=== PATIENT | female | born 1980 | race Caucasian/White ===

== ENCOUNTER 2017-01-21 15:22 | Inpatient (IN) | payer OTHER ==
[~2017-01-21] VITALS: Ht 154.9 cm; Wt 77.0 kg
[~2017-01-21 15:22] MED LIST: ASPIRIN81 M2 PO; AUGMENTIN875 MG PO; B COMPLETE1 EACH PO; ESCITALOPRAM OX20 MG PO; GINSENG100 M2 PO; LEVAQUIN750 MG PO; LO-DOSE ASPIRIN81 M2 PO; LORAZEPAM0.5 MG PO; MAGNESIUM100 MG PO; MEDROL DOSEPAK4 MG PO; MICRONOR0.35 MG PO; PREDNISONE20 MG PO; PREDNISONE50 MG PO; PROAIR HFA8.5 GM IH; PROBIOTIC1 EAC1 PO; VENTOLIN HFA18 GM IH
[2017-01-21 16:58] LABS: HEMATOCRIT 41.5 % (36.0-46.0); MCH 30.8 PG (29.0-34.0); MCHC 34.2 G/DL (30.0-36.0); MEAN PLAT.VOLUME 9.4 uM^3 (9.5-12.4); PLATELET COUNT 323 K/uL (156-360); RBC DIS.WIDTH-CV 12.2 % (11.8-14.6); RBC DIS.WIDTH-SD 40.1 % (39-53); RED BLOOD COUNT 4.61 M/uL (3.80-5.20); WHITE BLOOD COUNT 16.5 K/uL (4.1-10.2)
[2017-01-21 17:09] LABS: CHLORIDE 105 mEq/L (99-109); SODIUM 139 mEq/L (136-147)
[2017-01-21 17:11] LABS: GLUCOSE 108 mg/dL (70-99)
[2017-01-21 17:13] LABS: ANION GAP 10 MEQ/L (2-14)
[2017-01-21 17:15] LABS: GFR ESTIMATE (CALCULATED) > 59 mL/min/
[2017-01-21 17:16] LABS: UREA NITROGEN (BUN) 8 mg/dL (9-23)
[2017-01-21] MEDS ORDERED: ORTHO TRI-CY1 TABLE1 PO (20:02)
[2017-01-21] MEDS ORDERED: ADVIL200 MG PO (20:02)
[2017-01-21] MEDS ORDERED: CLARITIN,ALAVAR10 MG PO (20:02)
[2017-01-21 22:42] VITALS: BP 129/64
[2017-01-21 23:23] VITALS: BP 128/71
[2017-01-22 06:52] LABS: BASOPHIL COUNT 0.1 K/uL (0-0.1); EOSINOPHIL COUNT 1.3 K/uL (0-0.3); IMMATURE GRANULOCYTE (%) 0.3 % (0.0-0.7); INSTRUMENT ABS NEUTROPHIL CT 7.2 K/uL; LYMPHOCYTE COUNT 3.6 K/uL (1.0-2.8); MCH 30.9 PG (29.0-34.0); MCHC 33.5 G/DL (30.0-36.0); MCV 92.3 FL (83-99); MEAN PLAT.VOLUME 9.7 uM^3 (9.5-12.4); MONOCYTE (%) 6.7 % (3-12); MONOCYTE COUNT 0.9 K/uL (0-0.8); NEUTROPHIL (%) 54.5 % (45-76); NEUTROPHIL COUNT 7.2 K/uL (1.8-6.4); PLATELET COUNT 295 K/uL (156-360); RBC DIS.WIDTH-CV 12.4 % (11.8-14.6); RBC DIS.WIDTH-SD 42.3 % (39-53); RED BLOOD COUNT 4.01 M/uL (3.80-5.20); WHITE BLOOD COUNT 13.2 K/uL (4.1-10.2)
[2017-01-22 07:16] LABS: ANION GAP 7 MEQ/L (2-14); CHLORIDE 107 MEQ/L (99-109); GFR ESTIMATE (CALCULATED) > 59 mL/min/; GLUCOSE 96 mg/dL (70-99); POTASSIUM 3.8 MEQ/L (3.7-5.4); SAMPLE HEMOLYSIS CHECK 0; SAMPLE ICTERIC CHECK 0; SAMPLE LIPEMIA CHECK 0; SODIUM 140 MEQ/L (136-147); UREA NITROGEN (BUN) 8 mg/dL (9-23)
[2017-01-22 08:10] VITALS: BP 106/63
[2017-01-22 11:49] LABS: ADD MIUA? NO; BILIRUBIN NEGATIVE; BLOOD NEGATIVE; COLOR STRAW ((YELLOW)); GLUCOSE (STRIP) NEGATIVE; KETONES NEGATIVE; LEUKOCYTES NEGATIVE; NITRITE NEGATIVE; PROTEIN (STRIP) NEGATIVE; SPECIFIC GRAVITY 1.005 (1.000-1.030); UCUL ADDED? NO; UROBILINOGEN 0.2 MG/DL (0.2-1.0)
[2017-01-22 12:27] LABS: AMPHETAMINES QUANT VALUE 0 NG/ML; BARBITUATES QUANT VALUE 0 NG/ML; BENZODIAZEPINES QUANT VALUE 0 NG/ML; BENZODIAZEPINES, URINE SCREEN Negative (200 ng/mL); MARIJUANA QUANT VALUE 0 NG/ML; PHENCYCLIDINE QUANT VALUE 0 NG/ML
[2017-01-22 15:55] LABS: INFLUENZA A VIRAL ANTIGEN NEGATIVE; INFLUENZA B VIRAL ANTIGEN NEGATIVE
[2017-01-22 16:00] VITALS: BP 119/58
[2017-01-22 22:32] VITALS: BP 121/58
[2017-01-23 05:41] LABS: HEMATOCRIT 40.1 % (36.0-46.0); MCH 30.4 PG (29.0-34.0); MCHC 33.7 G/DL (30.0-36.0); MCV 90.3 FL (83-99); MEAN PLAT.VOLUME 9.5 uM^3 (9.5-12.4); PLATELET COUNT 320 K/uL (156-360); RBC DIS.WIDTH-CV 12.1 % (11.8-14.6); RBC DIS.WIDTH-SD 40.1 % (39-53); RED BLOOD COUNT 4.44 M/uL (3.80-5.20); WHITE BLOOD COUNT 15.1 K/uL (4.1-10.2)
[2017-01-23 06:41] LABS: ANION GAP 10 MEQ/L (2-14); CHLORIDE 104 MEQ/L (99-109); GFR ESTIMATE (CALCULATED) > 59 mL/min/; GLUCOSE 93 mg/dL (70-99); POTASSIUM 4.4 MEQ/L (3.7-5.4); SAMPLE HEMOLYSIS CHECK 0; SAMPLE ICTERIC CHECK 0; SAMPLE LIPEMIA CHECK 0; SODIUM 138 MEQ/L (136-147); UREA NITROGEN (BUN) 10 mg/dL (9-23)
[2017-01-23 07:23] VITALS: BP 114/63
[2017-01-23 07:39] LABS: INTERNAL CONTROL VALID? YES
[2017-01-23] MEDS ORDERED: ZITHROMAX250 MG PO (09:35)
[2017-01-23] MEDS ORDERED: VENTOLIN HFA18 GM IH (09:35)
[2017-01-23] MEDS ORDERED: ESCITALOPRAM OX20 MG PO (09:35)
[2017-01-23] MEDS ORDERED: BENZONATATE100 MG PO (09:35)
== END 2017-01-23 15:12 | disposition home or self-care (01) | DRG 193 ==
LOC: EME 15:22 → 5EAST 21:04 → EDOF 21:04 → 5EAST 22:28
PROVIDERS: Emergency Medicine; Hospitalist; Nurse Practitioner Family; Physician Assistant Medical
DX: J18.9 Pneumonia, unspecified organism (principal); A41.9 Sepsis, unspecified organism; R65.20 Severe sepsis without septic shock; F31.62 Bipolar disorder, current episode mixed, moderate; F41.0 Panic disorder [episodic paroxysmal anxiety]; J45.909 Unspecified asthma, uncomplicated; F90.9 Attention-deficit hyperactivity disorder, unspecified type; I95.9 Hypotension, unspecified; F17.220 Nicotine dependence, chewing tobacco, uncomplicated; J20.9 Acute bronchitis, unspecified; R00.0 Tachycardia, unspecified; F60.9 Personality disorder, unspecified; D72.1 Eosinophilia; E66.9 Obesity, unspecified; F17.210 Nicotine dependence, cigarettes, uncomplicated; J98.4 Other disorders of lung; Z87.01 Personal history of pneumonia (recurrent); Z68.32 Body mass index [BMI] 32.0-32.9, adult; Z09 Encounter for follow-up examination after completed treatment for conditions other than malignant neoplasm; Z81.8 Family history of other mental and behavioral disorders
CPT/HCPCS: 71010; 71020; 71275; 80048; 80306 90; 81003; 83605; 84702; 85025; 85027; 87040; 87070; 87205; 87449; 87502; 93005; 94640; 94640 76; 99202; 99281; 99285; J0456; J0696; J1650; J7030; J7050; J7120; J7644

== ENCOUNTER 2017-02-02 00:42 | Inpatient (IN) | payer OTHER ==
[~2017-02-02] VITALS: Ht 154.9 cm; Wt 75.7 kg
[~2017-02-02 00:42] MED LIST changes: +ADVIL200 MG PO; +BENZONATATE100 MG PO; +CLARITIN,ALAVAR10 MG PO; +ORTHO TRI-CY1 TABLE1 PO; +ZITHROMAX250 MG PO
[2017-02-02 03:25] LABS: ALKALINE PHOSPHATASE 55 IU/L (3-129); ANION GAP 11 MEQ/L (2-14); CHLORIDE 103 MEQ/L (99-109); GFR ESTIMATE (CALCULATED) > 59 mL/min/; GLUCOSE 142 mg/dL (70-99); LIPASE 12 U/L (1.0-51.0); POTASSIUM 3.6 MEQ/L (3.7-5.4); SAMPLE HEMOLYSIS CHECK 0; SAMPLE ICTERIC CHECK 0; SAMPLE LIPEMIA CHECK 0; SODIUM 139 MEQ/L (136-147); TOTAL BILIRUBIN 0.3 MG/DL (0.0-1.0); UREA NITROGEN (BUN) 6 mg/dL (9-23)
[2017-02-02 03:47] LABS: HEMATOCRIT 41.6 % (36.0-46.0); MCH 30.7 PG (29.0-34.0); MCHC 34.1 G/DL (30.0-36.0); MCV 89.8 FL (83-99); RED BLOOD COUNT 4.63 M/uL (3.80-5.20)
[2017-02-02 03:48] LABS: PLATELET COUNT 348 K/uL (156-360)
[2017-02-02 03:49] LABS: MEAN PLAT.VOLUME 9.3 uM^3 (9.5-12.4); RBC DIS.WIDTH-CV 12.3 % (11.8-14.6)
[2017-02-02 05:19] VITALS: BP 132/64
[2017-02-02 08:00] LABS: TROP-I INTERPRETATION NEGATIVE; TROPONIN-I < 0.01 ng/mL (0.0-0.30)
[2017-02-02 08:45] VITALS: BP 109/57
[2017-02-02 12:20] VITALS: BP 116/57
[2017-02-02 16:50] VITALS: BP 125/62
[2017-02-02 19:22] VITALS: BP 124/58
[2017-02-02 23:26] VITALS: BP 121/55
[2017-02-03 03:07] VITALS: BP 121/58
[2017-02-03 07:17] VITALS: BP 105/67
[2017-02-03 08:44] LABS: EOSINOPHIL (%) 0 % (0-5); HEMATOCRIT 38.5 % (36.0-46.0); IMMATURE GRANULOCYTE (%) 0.8 % (0.0-0.7); IMMATURE GRANULOCYTE COUNT 0.3 K/uL; INSTRUMENT ABS NEUTROPHIL CT 27.6 K/uL; LYMPHOCYTE COUNT 1.2 K/uL (1.0-2.8); MCH 31.2 PG (29.0-34.0); MCV 91.7 FL (83-99); MEAN PLAT.VOLUME 9.7 uM^3 (9.5-12.4); MONOCYTE (%) 1.3 % (3-12); MONOCYTE COUNT 0.4 K/uL (0-0.8); NEUTROPHIL (%) 93.7 % (45-76); NEUTROPHIL COUNT 27.6 K/uL (1.8-6.4); PLATELET COUNT 306 K/uL (156-360); RBC DIS.WIDTH-CV 12.7 % (11.8-14.6); RBC DIS.WIDTH-SD 42.8 % (39-53); WHITE BLOOD COUNT 29.5 K/uL (4.1-10.2)
[2017-02-03 09:05] LABS: ALKALINE PHOSPHATASE 46 IU/L (3-129); ANION GAP 11 MEQ/L (2-14); CHLORIDE 104 MEQ/L (99-109); GFR ESTIMATE (CALCULATED) > 59 mL/min/; GLUCOSE 158 mg/dL (70-99); POTASSIUM 3.5 MEQ/L (3.7-5.4); SAMPLE HEMOLYSIS CHECK 0; SAMPLE ICTERIC CHECK 0; SAMPLE LIPEMIA CHECK 0; SODIUM 139 MEQ/L (136-147); TOTAL BILIRUBIN 0.3 MG/DL (0.0-1.0); UREA NITROGEN (BUN) 7 mg/dL (9-23)
[2017-02-03] MEDS ORDERED: LEXAPRO20 MG PO (11:23)
[2017-02-03 15:20] VITALS: BP 95/51
[2017-02-04 00:29] VITALS: BP 129/72
[2017-02-04 07:22] LABS: HEMATOCRIT 38.5 % (36.0-46.0); MCHC 33.8 G/DL (30.0-36.0); MCV 91.9 FL (83-99); MEAN PLAT.VOLUME 9.9 uM^3 (9.5-12.4); PLATELET COUNT 325 K/uL (156-360); RBC DIS.WIDTH-CV 12.8 % (11.8-14.6); RBC DIS.WIDTH-SD 42.9 % (39-53); RED BLOOD COUNT 4.19 M/uL (3.80-5.20); WHITE BLOOD COUNT 24.8 K/uL (4.1-10.2)
[2017-02-04 07:37] VITALS: BP 107/55
[2017-02-04 07:46] LABS: ANION GAP 9 MEQ/L (2-14); CHLORIDE 105 MEQ/L (99-109); GFR ESTIMATE (CALCULATED) > 59 mL/min/; POTASSIUM 4.1 MEQ/L (3.7-5.4); SAMPLE HEMOLYSIS CHECK 0; SAMPLE ICTERIC CHECK 0; SAMPLE LIPEMIA CHECK 0; SODIUM 140 MEQ/L (136-147); UREA NITROGEN (BUN) 8 mg/dL (9-23)
[2017-02-04 07:49] LABS: GLUCOSE 112 mg/dL (70-99)
[2017-02-04] MEDS ORDERED: VENTOLIN HFA18 GM IH (10:30)
[2017-02-04] MEDS ORDERED: PREDNISONE10 MG PO (10:30)
[2017-02-04] MEDS ORDERED: LEVAQUIN750 MG PO (10:30)
== END 2017-02-04 11:14 | disposition home or self-care (01) | DRG 194 ==
LOC: EME → EDBD 00:42 → EME 00:42 → EDOF 03:52 → 2EAST 03:52
PROVIDERS: Hospitalist; Internal Medicine
DX: J18.9 Pneumonia, unspecified organism (principal); J45.901 Unspecified asthma with (acute) exacerbation; E87.2 Acidosis; F33.9 Major depressive disorder, recurrent, unspecified; F90.9 Attention-deficit hyperactivity disorder, unspecified type; E87.6 Hypokalemia; F41.9 Anxiety disorder, unspecified; Z91.14 Patient's other noncompliance with medication regimen; F12.90 Cannabis use, unspecified, uncomplicated; F17.210 Nicotine dependence, cigarettes, uncomplicated; E66.9 Obesity, unspecified; Z68.31 Body mass index [BMI] 31.0-31.9, adult; Z81.8 Family history of other mental and behavioral disorders
CPT/HCPCS: 71020; 71250; 80048; 80053; 82785 90; 83605; 83690; 84484; 85025; 85025 91; 85027; 87040; 87070; 87205; 93005; 94010; 94640; 94640 76; 94644; 94799; 99202; 99281; 99285; J0456; J0692; J1100; J1644; J2405; J2930; J7030; J7050; J7512; J7644